=== PATIENT | male | born 1965 | race Caucasian/White ===

== ENCOUNTER 2017-06-01 10:02 | Emergency (ER) | payer MEDICAID ==
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
[2017-06-01] MEDS ORDERED: IPRATROPIUM/ALBUTEROL 3 ML DEYVIAL IH ONE (10:31)
[2017-06-01 11:59] VITALS: BP 125/55; PULSE 75; RESP 14; TEMP 98.8; O2SAT 92
== END 2017-06-01 12:07 | disposition home or self-care (01) ==
DX: J20.8 Acute bronchitis due to other specified organisms (principal); F17.200 Nicotine dependence, unspecified, uncomplicated

== ENCOUNTER 2017-08-13 18:25 | Emergency (ER) | payer MEDICAID ==
[2017-08-13] MEDS ORDERED: PROPARACAINE 0.5% 15 ML OPHT DROP ONE (18:36)
[2017-08-13] MEDS ORDERED: OFLOXACIN 0.3% SOLN PREPACK OPHT.BTL TAKEHOME ONE (18:46)
--- NOTE | 2017-08-13 18:47 | EDPHY ---
H & P Stated Complaint: Injury to right eye this am, unsure of what went into eye. Time Seen by Provider: 08/13/17 18:33 HPI/ROS: CHIEF COMPLAINT: Corneal abrasion HISTORY OF PRESENT ILLNESS: Patient is a 52-year-old man who got some dust and sawdust in his eye this morning at work. He was wearing protective glasses at the time. He has had persistent discomfort since then. His eyes are Watering. He states that his vision is a baseline. He is 20/70 in the affected eye but this is what he typically is without glasses. REVIEW OF SYSTEMS: Constitutional: denies: chills, fever, recent illness, recent injury EENTM: See HPI Respiratory: denies: cough, shortness of breath Cardiac: denies: chest pain, irregular heart rate, lightheadedness, palpitations Gastrointestinal/Abdominal: denies: abdominal pain, diarrhea, nausea, vomiting, blood streaked stools Genitourinary: denies: dysuria, frequency, hematuria, pain Musculoskeletal: denies: joint pain, muscle pain Skin: denies: lesions, rash, jaundice, bruising Neurological: denies: headache, numbness, paresthesia, tingling, dizziness, weakness Hematologic/Lymphatic: denies: blood clots, easy bleeding, easy bruising Immunologic/allergic: denies: HIV/AIDS, transplant EXAM: GENERAL: Well-appearing, well-nourished and in no acute distress. HEAD: Atraumatic, normocephalic. EYES: Pupils equal round and reactive to light, extraocular movements intact, conjunctiva inflammation, several corneal abrasions between 6 and 9 o'clock ENT: TMs normal, nares patent, oropharynx clear without exudates. Moist mucous membranes. NECK: Normal range of motion, supple without lymphadenopathy or JVD. LUNGS: Breath sounds clear to auscultation bilaterally and equal. No wheezes rales or rhonchi. HEART: Regular rate and rhythm without murmurs, rubs or gallops. ABDOMEN: Soft, nontender, normoactive bowel sounds. No guarding, no rebound. No masses appreciated. BACK: No CVA tenderness, no spinal tenderness, step-offs or deformities EXTREMITIES: Normal range of motion, no pitting or edema. No clubbing or cyanosis. NEUROLOGICAL: Cranial nerves II through XII grossly intact. Normal speech, normal gait. 5/5 strength, normal movement in all extremities, normal sensation PSYCH: Normal mood, normal affect. SKIN: Warm, dry, normal turgor, no visible rashes or lesions. Source: Patient Exam Limitations: No limitations - Personal History Current Tetanus Diphtheria and Acellular Pertussis (TDAP): Yes - Medical/Surgical History Hx Asthma: No Hx Chronic Respiratory Disease: No Hx Diabetes: No Hx Cardiac Disease: No Hx Renal Disease: No Hx Cirrhosis: No Hx Alcoholism: Yes Hx HIV/AIDS: No Hx Splenectomy or Spleen Trauma: No Other PMH: PANCREATITIS, ANXIETY, DEPRESSION. IBS - Family History Significant Family History: No pertinent family hx - Social History Smoking Status: Heavy smoker Alcohol Use: Sober Drug Use: None Constitutional: Initial Vital Signs Temperature (C) 36.5 C 08/13/17 18:25 Heart Rate 81 08/13/17 18:25 Respiratory Rate 16 08/13/17 18:25 Blood Pressure 147/86 H 08/13/17 18:25 O2 Sat (%) 98 08/13/17 18:25 O2 Delivery Mode Room Air Allergies/Adverse Reactions: No Known Allergies Allergy (Verified 06/01/17 10:04) Home Medications: Medication Instructions Recorded Dicyclomine 10/30/13 LaMICtal 10/30/13 Remeron soltab 15 mg (RX) 10/30/13 buPROPion SR 10/30/13 traZODONE 100MG (RX) 10/30/13 Albuterol [Proventil Inhaler] 1 - 2 puffs IH Q4 #1 mdi 06/01/17 Ranitidine HCl 06/01/17 Medical Decision Making ED Course/Re-evaluation: Patient is corneal abrasion visible on slit-lamp exam. No sign of perforation. No foreign body currently. I will start him on Ocuflox. We discussed its use and follow up with Ophthalmology. He is happy with this plan. He declines further workup or testing at this time. Differential Diagnosis: Partial list of the Differential diagnosis considered include but were not limited to; corneal abrasion, foreign body and although unlikely based on the history and physical exam, I also considered conjunctivitis, perforation. I discussed these differential diagnoses and the plan with the patient as well as the usual and expected course. The patient understands that the diagnosis is provisional and that in medicine we are not always correct and that further workup is often warranted. Usual and customary warnings were given. All of the patient's questions were answered. The patient was instructed to return to the emergency department should the symptoms at all worsen or return, otherwise to followup with the physician as we discussed. - Data Points Medications Given: Discontinued Medications Ofloxacin (Ocuflox 0.3% Opht Drops Prepack) 1 btl TAKEHOME EDNOW ONE Stop: 08/13/17 18:47 Last Admin: 08/13/17 18:52 Dose: 1 btl Departure - Departure Disposition: Home, Routine, Self-Care Clinical Impression: Corneal abrasion, right Qualifiers: Encounter type: initial encounter Qualified Code(s): S05.01XA - Injury of conjunctiva and corneal abrasion without foreign body, right eye, initial encounter Condition: Fair Instructions: Ofloxacin (Into the eye), Corneal Abrasion (ED) Additional Instructions: Use eyedrops 2 drops in affected eye every 4 hr for 4 days. Referrals: NONE *PRIMARY CARE P,. [Primary Care Provider] - As per Instructions Eduard Gleason MD [Medical Doctor] - 2-3 days, if not improved
[2017-08-13 18:58] VITALS: BP 145/78
== END 2017-08-13 19:00 | disposition home or self-care (01) ==
DX: S05.01XA Injury of conjunctiva and corneal abrasion without foreign body, right eye, initial encounter (principal); F17.200 Nicotine dependence, unspecified, uncomplicated; X58.XXXA Exposure to other specified factors, initial encounter; Y92.69 Other specified industrial and construction area as the place of occurrence of the external cause; Y99.8 Other external cause status; Y93.89 Activity, other specified